=== PATIENT | female | born 1970 | race Caucasian/White ===

== ENCOUNTER 2020-04-06 03:31 | Observation (INO) ==
[2020-04-06] MEDS ORDERED: GI Cocktail 40 ML EACH PO ONE (04:04)
[2020-04-06 04:10] LABS: Basophils # 0.1 K/mcL (0.0-0.2); Basophils % 0.7 %; Eosinophils # 0.7 K/mcL (0.0-0.6); Eosinophils % 4.5 %; Hematocrit 46.3 % (35.3-44.9); Hemoglobin 15.2 g/dL (11.5-15.4); Immature Granulocytes % 0.6 % (0-4); Lymphocytes # 3.9 K/mcL (0.6-4.6); Lymphocytes % 26.1 %; Mean Corpuscular HGB Conc 32.8 g/dL (31.6-35.5); Mean Corpuscular Hemoglobin 29.1 pg (28.0-33.3); Mean Corpuscular Volume 88.7 fL (83.0-100.0); Mean Platelet Volume 9.5 fL (9.4-12.4); Monocytes % 6.6 %; Neutrophils # 9.3 K/mcL (1.6-8.9); Platelet Count 375 K/mcL (140-400); Red Blood Count 5.22 M/mcL (3.82-4.97); Red Cell Distribution Width 13.2 % (11.5-14.5); Segmented Neutrophils % 61.5 %; White Blood Count 15.1 K/mcL (4.3-11.1)
[2020-04-06 04:13] LABS: Prothrombin Time 11.2 Seconds (9.4-12.1)
[2020-04-06 04:16] LABS: Activated Partial Thrombo Time 29.1 Seconds (26.0-36.0)
[2020-04-06] MEDS: Nitroglycerin 0.4 MG TAB.SUBL SL SCH ×3 (04:23→04:33)
[2020-04-06 04:29] LABS: Alanine Aminotransferase 20 Units/L (7-52); Albumin 3.9 g/dL (3.5-5.7); Alkaline Phosphatase 65 Units/L (34-104); Aspartate Amino Transferase 13 Units/L (13-39); BUN/Creatinine Ratio 18 (6-26); Bilirubin,Indirect 0.3 mg/dL (0.0-1.0); Bilirubin,Total 0.3 mg/dL (0.3-1.0); Blood Urea Nitrogen 12 mg/dL (6-20); Calcium 8.8 mg/dL (8.6-10.3); Carbon Dioxide 26 mEq/L (23-29); Chloride 102 mEq/L (98-107); Globulin 3.8 g/dL (2.4-3.5); Glucose 303 mg/dL (70-105); Lipase 42 Units/L (11-82); Osmolality,Calculated 291 (280-300); Potassium 3.8 mEq/L (3.5-5.1); Sodium 135 mEq/L (136-145); Total Protein 7.7 g/dL (6.4-8.9); Troponin I 0.04 ng/mL (< 0.04); eGFR For African Americans > 60 (> 60); eGFR For Non-African Americans > 60 (> 60)
[2020-04-06] MEDS ORDERED: *HR* Heparin 5,000 UNIT/ML VIAL IVP PRN ×2 (05:26)
[2020-04-06] MEDS ORDERED: *HR* Heparin 5,000 UNIT/ML VIAL IVP ONE (05:26)
[2020-04-06] MEDS: Heparin 25,000UNIT/250ML 1/2NS 25,000 UNIT/250 ML IV.SOLN IVC SCH (05:44)
[2020-04-06] MEDS ORDERED: *HR* LORazepam 2 MG/ML VIAL IVP ONE (06:12)
[2020-04-06] MEDS ORDERED: Ondansetron 4 MG/2 ML VIAL IVP ONE (06:13)
[2020-04-06] MEDS ORDERED: *HR* FentaNYL (PF) 100 MCG/2 ML VIAL IVP ONE (06:31)
[2020-04-06] MEDS ORDERED: Nitroglycerin 0.4 MG TAB.SUBL SL PRN (08:36)
[2020-04-06] MEDS ORDERED: Simethicone 80 MG TAB.CHEW PO ONE (08:41)
[2020-04-06] MEDS ORDERED: Morphine Sulfate 2 MG/ML SYRINGE IVP PRN (09:21)
[2020-04-06] MEDS ORDERED: Ondansetron 4 MG/2 ML VIAL IVP PRN (09:21)
[2020-04-06] MEDS ORDERED: Perflutren Lipid Microsphere 1.3 ML in 0.9 % Sodium Chloride 8.7 ML IVP PRN (09:21)
[2020-04-06] MEDS ORDERED: Simethicone 80 MG TAB.CHEW PO PRN (09:26)
[2020-04-06] MEDS ORDERED: Naloxone 0.4 MG/ML INJ IVP PRN (09:26)
[2020-04-06] MEDS ORDERED: Mag Hydrox/Al Hydrox/Simeth 30 ML UDC PO PRN (09:26)
[2020-04-06 09:34] LABS: Hematocrit 43.6 % (35.3-44.9); Hemoglobin 14.4 g/dL (11.5-15.4); Mean Corpuscular Hemoglobin 30.1 pg (28.0-33.3); Mean Platelet Volume 9.7 fL (9.4-12.4); Platelet Count 363 K/mcL (140-400); Red Blood Count 4.79 M/mcL (3.82-4.97); White Blood Count 15.8 K/mcL (4.3-11.1)
[2020-04-06 09:38] LABS: Heparin anti-factor XA UFH 0.09 IU/mL (0.30-0.70); Prothrombin Time 11.9 Seconds (9.4-12.1)
[2020-04-06] MEDS ORDERED: D5% in Water 1,000 ML IVC PRN (09:40)
[2020-04-06] MEDS ORDERED: *HR* Dextrose 50 % in Water (Vial) 50 ML VIAL IVP PRN (09:40)
[2020-04-06] MEDS ORDERED: Dextrose Gel 15 GM/37.5 ML TUBE PO PRN ×2 (09:40)
[2020-04-06 10:23] LABS: Troponin I 0.71 ng/mL (< 0.04)
[2020-04-06] MEDS ORDERED: methylPREDNISolone 125 MG/2 ML VIAL IVP ONE (12:18)
[2020-04-06] MEDS: Aspirin Enteric Coated 81 MG Tablet PO SCH (12:33)
[2020-04-06] MEDS: Insulin DETEMIR 100 UNIT/ML X5UNITS SQ SCH ×2 (12:33→20:36)
[2020-04-06] MEDS: carvediloL 6.25 MG TABLET PO SCH ×2 (12:33→17:28)
[2020-04-06] MEDS: Insulin LISPRO 300 UNITS/3 ML VIAL SQ SCH ×2 (12:45→17:27)
[2020-04-06] MEDS: Acetaminophen 325 MG TABLET PO PRN ×2 (13:01→20:41)
[2020-04-06] MEDS ORDERED: *HR* Midazolam HCl 2 MG/2 ML VIAL ONE (13:05)
[2020-04-06] MEDS ORDERED: ISOVUE-370 200 ML INFUS..BTL ONE ×2 (13:06→14:06)
[2020-04-06] MEDS ORDERED: *HR* FentaNYL (PF) 100 MCG/2 ML VIAL ONE (13:06)
[2020-04-06] MEDS ORDERED: 0.9 % Sodium Chloride 2,000 ML ONE (13:06)
[2020-04-06] MEDS ORDERED: *HR* Heparin 10,000 UNIT/10 ML VIAL ONE ×2 (13:06→14:06)
[2020-04-06] MEDS ORDERED: Heparin 1,000 UNITS/500 mL 500 ML ONE ×2 (13:06→14:36)
[2020-04-06] MEDS ORDERED: Nitroglycerin 1,000 MCG/10 ML VIAL IV ONE ×2 (13:06→14:57)
[2020-04-06] MEDS ORDERED: Tirofiban 12.5 MG/250ML 12.5 MG/250 ML BAG ONE (14:01)
[2020-04-06] MEDS ORDERED: Ondansetron 4 MG/2 ML VIAL ONE (14:35)
[2020-04-06] MEDS ORDERED: *HR* Ticagrelor 90 MG TABLET ONE (15:14)
[2020-04-06] MEDS: 0.9 % Sodium Chloride 1,000 ML IVC SCH (16:11)
[2020-04-06] MEDS: Pantoprazole 40 MG VIAL IVP SCH (17:27)
[2020-04-06] MEDS: *HR* Ticagrelor 90 MG TABLET PO SCH (20:36)
[2020-04-06] MEDS ORDERED: Insulin LISPRO 300 UNITS/3 ML VIAL SQ SCH (21:00)
[2020-04-07] MEDS: 0.9 % Sodium Chloride 1,000 ML IVC SCH ×2 (00:42→09:58)
[2020-04-07 04:43] LABS: Basophils % 0.2 %; Hematocrit 42.6 % (35.3-44.9); Hemoglobin 14.2 g/dL (11.5-15.4); Immature Granulocytes % 0.9 % (0-4); Lymphocytes # 2.6 K/mcL (0.6-4.6); Lymphocytes % 11.3 %; Mean Corpuscular HGB Conc 33.3 g/dL (31.6-35.5); Mean Corpuscular Hemoglobin 30.3 pg (28.0-33.3); Mean Corpuscular Volume 90.8 fL (83.0-100.0); Mean Platelet Volume 9.9 fL (9.4-12.4); Monocytes # 0.8 K/mcL (0.0-1.3); Monocytes % 3.5 %; Neutrophils # 18.9 K/mcL (1.6-8.9); Platelet Count 367 K/mcL (140-400); Red Blood Count 4.69 M/mcL (3.82-4.97); Red Cell Distribution Width 13.1 % (11.5-14.5); Segmented Neutrophils % 84.1 %; White Blood Count 22.5 K/mcL (4.3-11.1)
[2020-04-07 04:55] LABS: Alanine Aminotransferase 24 Units/L (7-52); Albumin 3.5 g/dL (3.5-5.7); Albumin/Globulin Ratio 1.1 (1.1-2.2); Alkaline Phosphatase 52 Units/L (34-104); Aspartate Amino Transferase 43 Units/L (13-39); BUN/Creatinine Ratio 19 (6-26); Bilirubin,Total 0.5 mg/dL (0.3-1.0); Blood Urea Nitrogen 10 mg/dL (6-20); Calcium 8.5 mg/dL (8.6-10.3); Carbon Dioxide 21 mEq/L (23-29); Chloride 106 mEq/L (98-107); Globulin 3.3 g/dL (2.4-3.5); Glucose 282 mg/dL (70-105); Magnesium 2.1 mg/dL (1.6-2.6); Osmolality,Calculated 291 (280-300); Potassium 3.9 mEq/L (3.5-5.1); Sodium 136 mEq/L (136-145); Total Protein 6.8 g/dL (6.4-8.9); eGFR For African Americans > 60 (> 60); eGFR For Non-African Americans > 60 (> 60)
[2020-04-07] MEDS: Acetaminophen 325 MG TABLET PO PRN (05:38)
[2020-04-07] MEDS: Pantoprazole 40 MG VIAL IVP SCH (05:38)
[2020-04-07] MEDS: Heparin 25,000UNIT/250ML 1/2NS 25,000 UNIT/250 ML IV.SOLN IVC SCH (07:22)
[2020-04-07] MEDS ORDERED: PARoxetine 30 MG TABLET PO PRN (08:27)
[2020-04-07] MEDS ORDERED: ALPRAZolam 0.5 MG TABLET PO PRN (08:27)
[2020-04-07] MEDS ORDERED: Gabapentin 300 MG CAPSULE PO SCH (09:00)
[2020-04-07] MEDS ORDERED: lisinopriL 20 MG TABLET PO SCH (09:00)
[2020-04-07] MEDS: *HR* Ticagrelor 90 MG TABLET PO SCH (09:49)
[2020-04-07] MEDS: Aspirin Enteric Coated 81 MG Tablet PO SCH (09:49)
[2020-04-07] MEDS: Insulin DETEMIR 100 UNIT/ML X5UNITS SQ SCH (09:50)
[2020-04-07] MEDS: carvediloL 6.25 MG TABLET PO SCH (09:50)
[2020-04-07] MEDS: Insulin LISPRO 300 UNITS/3 ML VIAL SQ SCH ×2 (09:51→12:21)
[2020-04-07] MEDS ORDERED: Tiotropium 18 MCG inhalation IH SCH (10:00)
[2020-04-07 11:58] VITALS: BP 149/90
[2020-04-07] MEDS ORDERED: traZODone 50 MG TABLET PO SCH (21:00)
== END 2020-04-07 13:46 | disposition home or self-care (01) ==
LOC: EMEROOARM 03:31 → 2ANU 03:31 → SUATTDRO 06:21 → 2ANU 06:55
PROVIDERS: ADMIT Internal Medicine; ATTEND Family Medicine

== ENCOUNTER 2021-08-10 07:40 | Observation (INO) ==
[2021-08-10] MEDS ORDERED: Ondansetron 4 MG/2 ML VIAL IVP ONE (07:56)
[2021-08-10] MEDS ORDERED: 0.9 % Sodium Chloride 1,000 ML IVC ONE (07:56)
[2021-08-10 08:37] LABS: Basophils # 0.1 K/mcL (0.0-0.2); Basophils % 0.4 %; Eosinophils # 0.4 K/mcL (0.0-0.6); Eosinophils % 3.3 %; Hematocrit 45.9 % (35.3-44.9); Hemoglobin 15.1 g/dL (11.5-15.4); Immature Granulocytes % 0.5 % (0-4); Mean Corpuscular HGB Conc 32.9 g/dL (31.6-35.5); Mean Corpuscular Hemoglobin 29.8 pg (28.0-33.3); Mean Corpuscular Volume 90.5 fL (83.0-100.0); Mean Platelet Volume 9.8 fL (9.4-12.4); Monocytes # 0.6 K/mcL (0.0-1.3); Monocytes % 5.5 %; Neutrophils # 8.2 K/mcL (1.6-8.9); Platelet Count 340 K/mcL (140-400); Red Blood Count 5.07 M/mcL (3.82-4.97); Segmented Neutrophils % 72.3 %; White Blood Count 11.3 K/mcL (4.3-11.1)
[2021-08-10 08:58] LABS: BUN/Creatinine Ratio 16 (6-26); Blood Urea Nitrogen 10 mg/dL (6-20); Calcium 8.6 mg/dL (8.6-10.3); Carbon Dioxide 28 mEq/L (23-29); Chloride 101 mEq/L (98-107); Glucose 349 mg/dL (70-105); Osmolality,Calculated 295 (280-300); Potassium 3.8 mEq/L (3.5-5.1); Sodium 136 mEq/L (136-145); Troponin I < 0.03 ng/mL (< 0.04); eGFR For African Americans > 60 (> 60); eGFR For Non-African Americans > 60 (> 60)
[2021-08-10] MEDS ORDERED: Isovue-370 500 ML BOTTLE IVP ONE (10:16)
[2021-08-10] MEDS ORDERED: Naloxone 0.4 MG/ML INJ IVP PRN (11:33)
[2021-08-10] MEDS ORDERED: *HR* Dextrose 50 % in Water (Syg) 50 ML SYRINGE IVP PRN (11:34)
[2021-08-10] MEDS ORDERED: D5% in Water 1,000 ML IVC PRN (11:34)
[2021-08-10] MEDS ORDERED: Dextrose 4 GM Chewable Tablets PO PRN ×2 (11:34)
[2021-08-10 12:23] LABS: Chol/HDL Ratio 6.8 (0-4.9); Cholesterol 162 mg/dL (< 200); HDL Cholesterol 24 mg/dL (40-59); LDL Cholesterol,Calculated 102 mg/dL (< 100); Triglycerides 179 mg/dL (< 150)
[2021-08-10 12:24] LABS: Troponin I < 0.03 ng/mL (< 0.04)
[2021-08-10] MEDS: Insulin LISPRO 300 UNITS/3 ML VIAL SUBQ SCH ×4 (12:35→19:57)
[2021-08-10 12:42] LABS: Estimated Average Glucose 269 mg/dl
[2021-08-10] MEDS ORDERED: Budesonide/Formoterol 160/4.5 1 PUFF INH IH PRN (13:04)
[2021-08-10] MEDS ORDERED: Nitroglycerin 0.4 MG TAB.SUBL SL PRN (13:04)
[2021-08-10] MEDS ORDERED: Perflutren Lipid Microsphere 1.3 ML in 0.9 % Sodium Chloride 8.7 ML IVP PRN (13:16)
[2021-08-10] MEDS ORDERED: Aspirin 81 MG TAB.CHEW PO ONE (13:19)
[2021-08-10] MEDS: Aspirin 81 MG TAB.CHEW PO SCH (14:55)
[2021-08-10] MEDS: Gabapentin 300 MG CAPSULE PO SCH ×2 (14:55→19:56)
[2021-08-10] MEDS: methocarbamoL 750 MG TABLET PO SCH ×2 (14:55→19:56)
[2021-08-10] MEDS: carvediloL 6.25 MG TABLET PO SCH (17:43)
[2021-08-10] MEDS: *HR* Heparin 5,000 UNIT/ML VIAL SQ SCH (17:43)
[2021-08-10] MEDS: Budesonide/Formoterol 160/4.5 1 PUFF INH IH SCH (19:21)
[2021-08-10] MEDS: ALPRAZolam 0.5 MG TABLET PO SCH (19:56)
[2021-08-10] MEDS: hydrOXYzine pamoate 25 MG CAPSULE PO SCH (19:56)
[2021-08-10] MEDS ORDERED: Acetaminophen 325 MG TABLET PO ONE (22:42)
[2021-08-11] MEDS: *HR* Heparin 5,000 UNIT/ML VIAL SQ SCH ×2 (04:53→17:34)
[2021-08-11] MEDS ORDERED: Tiotropium 10 INH DOSE IH ONE (07:29)
[2021-08-11] MEDS: Budesonide/Formoterol 160/4.5 1 PUFF INH IH SCH ×2 (07:50→19:39)
[2021-08-11] MEDS: Tiotropium 10 INH DOSE IH SCH (07:51)
[2021-08-11] MEDS ORDERED: Regadenoson 0.4 MG/5 ML SYRINGE IVP ONE (07:59)
[2021-08-11] MEDS: Insulin LISPRO 300 UNITS/3 ML VIAL SUBQ SCH ×7 (11:20→20:24)
[2021-08-11] MEDS: Gabapentin 300 MG CAPSULE PO SCH ×3 (11:21→20:24)
[2021-08-11] MEDS: ALPRAZolam 0.5 MG TABLET PO SCH ×2 (11:21→20:24)
[2021-08-11] MEDS: Insulin DETEMIR 100 UNIT/ML X5UNITS SUBQ SCH (11:21)
[2021-08-11] MEDS: Aspirin 81 MG TAB.CHEW PO SCH (11:21)
[2021-08-11] MEDS: methocarbamoL 750 MG TABLET PO SCH ×3 (11:21→20:24)
[2021-08-11] MEDS: lisinopriL 20 MG TABLET PO SCH (11:21)
[2021-08-11] MEDS: PARoxetine 30 MG TABLET PO SCH (11:21)
[2021-08-11] MEDS: carvediloL 6.25 MG TABLET PO SCH ×2 (11:21→16:21)
[2021-08-11] MEDS: hydrOXYzine pamoate 25 MG CAPSULE PO SCH (20:24)
[2021-08-12 06:33] VITALS: TEMP 97.5
[2021-08-12] MEDS: Budesonide/Formoterol 160/4.5 1 PUFF INH IH SCH (07:35)
[2021-08-12] MEDS: Tiotropium 10 INH DOSE IH SCH (07:35)
[2021-08-12] MEDS: *HR* Heparin 5,000 UNIT/ML VIAL SQ SCH (09:01)
[2021-08-12] MEDS: Gabapentin 300 MG CAPSULE PO SCH (09:02)
[2021-08-12] MEDS: ALPRAZolam 0.5 MG TABLET PO SCH (09:02)
[2021-08-12] MEDS: Aspirin 81 MG TAB.CHEW PO SCH (09:02)
[2021-08-12] MEDS: carvediloL 6.25 MG TABLET PO SCH (09:04)
[2021-08-12] MEDS: lisinopriL 20 MG TABLET PO SCH (09:05)
[2021-08-12] MEDS: methocarbamoL 750 MG TABLET PO SCH (09:13)
[2021-08-12] MEDS: PARoxetine 30 MG TABLET PO SCH (09:14)
[2021-08-12] MEDS: Insulin LISPRO 300 UNITS/3 ML VIAL SUBQ SCH ×4 (09:15→11:40)
[2021-08-12] MEDS: Insulin DETEMIR 100 UNIT/ML X5UNITS SUBQ SCH (09:21)
[2021-08-12 10:22] VITALS: BP 102/66; PULSE 72; O2SAT 93
== END 2021-08-12 14:35 | disposition home or self-care (01) ==
LOC: 3BNU 07:40 → EMEROOARM 07:40 → 3BNU 13:08
PROVIDERS: ADMIT Internal Medicine; ATTEND Internal Medicine